=== PATIENT | female | born 1960 | race Caucasian/White ===

== ENCOUNTER 2016-12-18 09:45 | Emergency (ER) | payer OTHER ==
[~2016-12-18] VITALS: Ht 170.2 cm; Wt 56.2 kg
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
[2016-12-18 09:50] VITALS: BP 140/82; PULSE 97; RESP 18; TEMP 97.8; O2SAT 99
--- NOTE | 2016-12-18 09:50 | NUR ---
ED MD Quan at bedside for medical examination.
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
[2016-12-18] MEDS ORDERED: KETOROLAC TROMETHAMINE 60 MG/2 ML VIAL IM ONE (10:00)
--- NOTE | 2016-12-18 10:04 | NUR ---
PT taken off unit to X-Ray via [facility].
--- NOTE | 2016-12-18 10:30 | NUR ---
PT returned to unit from X-Ray via [facility]
--- NOTE | 2016-12-18 10:40 | NUR ---
Medications administered per MD order. Tolerated well. Will continue to monitor.
[2016-12-18 11:55] VITALS: BP 121/69; PULSE 89; RESP 16; TEMP 98.3; O2SAT 100
--- NOTE | 2016-12-18 11:55 | NUR ---
Patient given written and verbal discharge instructions and verbalizes understanding. ER MD dr. woody discussed with patient the results and treatment provided. Patient in stable condition. ID arm band removed. Rx of norco given. Patient educated on pain management and to follow up with PMD. Pain Scale 0/10 Opportunity for questions provided and answered.
== END 2016-12-18 11:55 | disposition home or self-care (01) ==
LOC: SED 09:45
DX: S22.20XA Unspecified fracture of sternum, initial encounter for closed fracture (principal); M25.561 Pain in right knee; M54.2 Cervicalgia; R51 Headache; Z88.1 Allergy status to other antibiotic agents; V89.2XXA Person injured in unspecified motor-vehicle accident, traffic, initial encounter; Y93.89 Activity, other specified; Y92.488 Other paved roadways as the place of occurrence of the external cause; Y99.8 Other external cause status
CPT/HCPCS: 70450; 71250; 72125; 73564; 96372; 99284; J1885